=== PATIENT | male | born 1960 | race African-American/Black ===

== ENCOUNTER 2017-03-14 00:37 | Day surgery (SDC) | payer BC ==
[2017-03-14 01:27] VITALS: BMI 20.6
[2017-03-14 03:37] LABS: BASOPHIL 0.6 % (0-2.0); EOSINOPHIL 0.1 % (0-4.5); MCH 28.9 pg (25.7-33.7); MCHC 32.9 g/dl (32.0-35.9); MEAN CELL VOLUME 87.8 fl (80-96); MEAN PLT VOLUME 9.1 fl (7.5-11.1); NEUTROPHILS 83.9 % (42.8-82.8); PLATELET COUNT 163 K/MM3 (134-434); RDW 14.2 % (11.9-15.9); WHITE BLOOD COUNT 6.6 K/mm3 (4.0-10.0)
[2017-03-14 03:56] LABS: ALBUMIN 3.9 g/dl (3.4-5.0); ALK PHOS 83 U/L (45-117); ANION GAP 7 (8-16); BILIRUBIN,DIRECT 0.3 mg/dL (0.0-0.2); BILIRUBIN,TOTAL 1.3 mg/dL (0.2-1.0); CALCIUM 8.6 mg/dL (8.5-10.1); CO2 29 mmol/L (21-32); GLUCOSE,RANDOM 113 mg/dL (74-106); SGOT/AST 36 U/L (15-37); SGPT/ALT 40 U/L (12-78); TOT PROT 7.2 g/dl (6.4-8.2)
--- NOTE | 2017-03-14 05:00 | PDOC ---
History of Present Illness - General Chief Complaint: Pain, Acute Stated Complaint: STOMACH PAIN Time Seen by Provider: 03/14/17 02:42 History Source: Patient Exam Limitations: No Limitations - History of Present Illness Initial Comments: 03/14/17 05:00 57M with no pmh presents with 8/10 non-radiating periombilical pain with 3 episodes of non-bilious vomiting yesterday morning. No constipation, no diarrhea. Aleves relieves the pain a little but then comes back No one else sick at home. Not effected by food intake. Past History - Past Medical History Allergies/Adverse Reactions: Allergies Allergy/AdvReac Type Severity Reaction Status Date / Time No Known Allergies Allergy Verified 03/14/17 01:23 COPD: No - Suicide/Smoking/Psychosocial Hx Smoking History: Never smoked Review of Systems - Review of Systems Constitutional: No: Symptoms Reported HEENTM: No: Symptoms Reported Respiratory: No: Symptoms reported Cardiac (ROS): No: Symptoms Reported ABD/GI: Yes: See HPI : No: Symptoms Reported Musculoskeletal: No: Symptoms Reported Integumentary: No: Symptoms Reported Neurological: No: Symptoms reported *Physical Exam - Vital Signs Last Vital Signs Temp Pulse Resp BP Pulse Ox 98.3 F 68 18 137/68 98 03/14/17 01:25 03/14/17 01:25 03/14/17 01:25 03/14/17 01:25 03/14/17 01:25 - Physical Exam General Appearance: Yes: Nourished, Appropriately Dressed. No: Apparent Distress HEENT: positive: EOMI, ROBBIE, Normal ENT Inspection Neck: negative: Tender Respiratory/Chest: positive: Lungs Clear, Normal Breath Sounds. negative: Chest Tender, Respiratory Distress Cardiovascular: positive: Regular Rhythm, Regular Rate, S1, S2 Gastrointestinal/Abdominal: positive: Normal Bowel Sounds, Tender (periumbilical ), Pulsatile Mass, Distended. negative: Guarding, Rebound Neurologic: positive: Fully Oriented, Alert, Normal Mood/Affect ED Treatment Course - LABORATORY CBC & Chemistry Diagram: 03/14/17 03:27 03/14/17 03:27 - ADDITIONAL ORDERS Additional order review: Laboratory Results 03/14/17 03/14/17 03:27 03:27 Sodium 138 Potassium 4.0 Chloride 102 Carbon Dioxide 29 Anion Gap 7 L BUN 13 Creatinine 1.0 Creat Clearance w eGFR > 60 Random Glucose 113 H Calcium 8.6 Total Bilirubin 1.3 H Direct Bilirubin 0.3 H AST 36 ALT 40 Alkaline Phosphatase 83 Troponin I < 0.02 Total Protein 7.2 Albumin 3.9 Lipase 84 03/14/17 03:27 RBC 4.62 MCV 87.8 MCHC 32.9 RDW 14.2 MPV 9.1 Neutrophils % 83.9 H Lymphocytes % 9.0 Monocytes % 6.4 Eosinophils % 0.1 Basophils % 0.6 Medical Decision Making - Medical Decision Making 03/14/17 07:34 57M with no pmh presents with periumbilical pain and vomiting episods. 03/14/17 07:35 bedside u/s negative for AAA. CT Abd with PO & IV Contrast Pending. Labs WNL Patient signed out to Dr. Dye *DC/Admit/Observation/Transfer Diagnosis at time of Disposition: Periumbilical abdominal pain - Referrals Referrals: FriendYung [Primary Care Provider] - - Patient Instructions - Post Discharge Activity
[2017-03-14 06:11] LABS: URINE APPEARANCE CLEAR; URINE BILIRUBIN NEGATIVE (NEGATIVE); URINE BLOOD NEGATIVE (NEGATIVE); URINE COLOR YELLOW; URINE GLUCOSE (UA) NEGATIVE (NEGATIVE); URINE KETONE 1+ (NEGATIVE); URINE NITRITE NEGATIVE (NEGATIVE); URINE PROTEIN NEGATIVE (NEGATIVE); URINE UROBILINOGEN NEGATIVE mg/dL (0.2-1.0)
--- NOTE | 2017-03-14 08:11 | PDOC ---
*Physical Exam - Vital Signs Assumed care from Dr. Vieira. 57 YOM p/w periumbilical pain and vomiting x2 sxs onset 24 hours ago as of this morning.No obvious AAA on bedside US here in the ED. Awaiting CT Ab/Pelv IV/PO contrast final report. Last Vital Signs Temp Pulse Resp BP Pulse Ox 98.3 F 68 18 137/68 98 03/14/17 01:25 03/14/17 01:25 03/14/17 01:25 03/14/17 01:25 03/14/17 01:25 ED Treatment Course - LABORATORY CBC & Chemistry Diagram: 03/14/17 03:27 03/14/17 03:27 - ADDITIONAL ORDERS Additional order review: Laboratory Results 03/14/17 03/14/17 03/14/17 06:00 06:00 03:27 Sodium Potassium Chloride Carbon Dioxide Anion Gap BUN Creatinine Creat Clearance w eGFR Random Glucose Lactic Acid 0.6 Calcium Total Bilirubin Direct Bilirubin AST ALT Alkaline Phosphatase Troponin I < 0.02 Total Protein Albumin Lipase Urine Color Yellow Urine Appearance Clear Urine pH 6.0 Ur Specific [place] 1.017 Urine Protein Negative Urine Glucose (UA) Negative Urine Ketones 1+ H Urine Blood Negative Urine Nitrite Negative Urine Bilirubin Negative Urine Urobilinogen Negative 03/14/17 03:27 Sodium 138 Potassium 4.0 Chloride 102 Carbon Dioxide 29 Anion Gap 7 L BUN 13 Creatinine 1.0 Creat Clearance w eGFR > 60 Random Glucose 113 H Lactic Acid Calcium 8.6 Total Bilirubin 1.3 H Direct Bilirubin 0.3 H AST 36 ALT 40 Alkaline Phosphatase 83 Troponin I Total Protein 7.2 Albumin 3.9 Lipase 84 Urine Color Urine Appearance Urine pH Ur Specific [place] Urine Protein Urine Glucose (UA) Urine Ketones Urine Blood Urine Nitrite Urine Bilirubin Urine Urobilinogen 03/14/17 03:27 RBC 4.62 MCV 87.8 MCHC 32.9 RDW 14.2 MPV 9.1 Neutrophils % 83.9 H Lymphocytes % 9.0 Monocytes % 6.4 Eosinophils % 0.1 Basophils % 0.6 Medical Decision Making - Medical Decision Making 03/14/17 07:[address] Reeder who is concerned for appendicitis. 03/14/17 08:[address] Carpenter who will see when the patient can have appendectomy. Patient will be made NPO, antibiotics started, pre-op work to be done. 03/14/17 08:12 Spoke with Elvis Marinelli with Admitting; [facility]. CXR portable, T&S, coags, EKG, Cipro-Flagyl, NPO, IVF ordered. *DC/Admit/Observation/Transfer Diagnosis at time of Disposition: Appendicitis Qualifiers: Appendicitis type: acute appendicitis Acute appendicitis type: unspecified acute appendicitis type Qualified Code(s): K35.80 - Unspecified acute appendicitis - Discharge Dispostion Condition at time of disposition: Guarded Admit: Yes - Referrals Referrals: FriendYung [Primary Care Provider] - - Patient Instructions - Post Discharge Activity
[2017-03-14] MEDS ORDERED: CIPROFLOXACIN 400 MG/D5W 400 MG/200 ML IVPB IVPB ONE (08:15)
[2017-03-14] MEDS ORDERED: METRONIDAZOLE 500 MG PREMIXED 500 MG/100 ML MG IVPB ONE ×2 (08:15→09:43)
[2017-03-14] MEDS ORDERED: SODIUM CHLORIDE 0.9% 1000 ML INFUS.BAG IV ONE (08:20)
[2017-03-14 10:09] LABS: INR 1.12 (0.82-1.09); PROTHROMBIN TIME (PATIENT) 12.7 SEC (9.98-11.88)
[2017-03-14 10:12] LABS: ACTIVATED PTT 27.5 SECONDS (26.9-34.4)
[2017-03-14] MEDS ORDERED: morphine SULFATE 4 MG/ML VIAL IVPUSH PRN (10:27)
--- NOTE | 2017-03-14 10:27 | HP ---
CHIEF COMPLAINT:Abdominal pain with vomiting PCP:Dr. Barragan Friend HISTORY OF PRESENT ILLNESS: 57M with no PMH presents to the ED with a one day history of anbdominal pain. Patient states her was working yesterday an around 10am he had a break and ate some food and felt like he had gas pain. he then developed periumbilical abdominal pain nausea then eventual vomiting. Patient had a few episodes of NB/ NB vomiting. He denies fevers chills chest pain shortness of breath diarrhea or conniption. Patient states he has good follow up with his PMD and sees him regularly. He denies a PMH and denies being on meds. At the time of exam he denied pain and stated his symptoms have been relieved. He did not receive pain medications. ER course was notable for: (1)CTAP (2)IVF (3)ABX Labs Recent Travel:Denies PAST MEDICAL HISTORY:Denies PAST SURGICAL HISTORY: had 2 superficial masses removed from his back. Social History: Smoking:Denies Alcohol:Denies Drugs: Denies Allergies No Known Allergies Allergy (Verified 03/14/17 01:23) HOME MEDICATIONS: REVIEW OF SYSTEMS CONSTITUTIONAL: Absent: fever, chills, diaphoresis, generalized weakness, malaise, loss of appetite, weight change HEENT: Absent: rhinorrhea, nasal congestion, throat pain, throat swelling, difficulty swallowing, mouth swelling, ear pain, eye pain, visual changes CARDIOVASCULAR: Absent: chest pain, syncope, palpitations, irregular heart rate, lightheadedness , peripheral edema RESPIRATORY: Absent: cough, shortness of breath, dyspnea with exertion, orthopnea, wheezing, stridor, hemoptysis GASTROINTESTINAL: Absent: , abdominal distension, diarrhea, constipation, melena, hematochezia Present: abdominal pain , nausea, vomiting GENITOURINARY: Absent: dysuria, frequency, urgency, hesitancy, hematuria, flank pain, genital pain MUSCULOSKELETAL: Absent: myalgia, arthralgia, joint swelling, back pain, neck pain SKIN: Absent: rash, itching, pallor HEMATOLOGIC/IMMUNOLOGIC: Absent: easy bleeding, easy bruising, lymphadenopathy, frequent infections ENDOCRINE: Absent: unexplained weight gain, unexplained weight loss, heat intolerance, cold intolerance NEUROLOGIC: Absent: headache, focal weakness or paresthesias, dizziness, unsteady gait, seizure, mental status changes, bladder or bowel incontinence PSYCHIATRIC: Absent: anxiety, depression, suicidal or homicidal ideation, hallucinations. PHYSICAL EXAMINATION Vital Signs - 24 hr 03/14/17 01:25 Temperature 98.3 F Pulse Rate 68 Respiratory 18 Rate Blood Pressure 137/68 O2 Sat by Pulse 98 Oximetry (%) GENERAL: Awake, alert, and fully oriented, in no acute distress. HEAD: Normal with no signs of trauma. EYES: Pupils equal, round and reactive to light, extraocular movements intact, sclera anicteric, conjunctiva clear. EARS, NOSE, THROAT:Dry mucous membranes. NECK: Normal range of motion, supple without JVD LUNGS: Breath sounds equal, clear to auscultation bilaterally. No wheezes, and no crackles. No accessory muscle use. HEART: Regular rate and rhythm, normal S1 and S2 without murmur, rub or gallop. ABDOMEN: Soft, nontender, not distended, hyperactive bowel sounds, no guarding, no rebound MUSCULOSKELETAL: Normal range of motion at all joints. No bony deformities or tenderness. No CVA tenderness. UPPER EXTREMITIES: warm, well-perfused. No cyanosis. No clubbing. No peripheral edema. LOWER EXTREMITIES: warm, well-perfused. No calf tenderness. No peripheral edema. Laboratory Results - last 24 hr 03/14/17 03/14/17 03/14/17 03:27 03:27 03:27 WBC 6.6 RBC 4.62 Hgb 13.3 Hct 40.5 MCV 87.8 MCH 28.9 MCHC 32.9 RDW 14.2 Plt Count 163 MPV 9.1 Neutrophils % 83.9 H Lymphocytes % 9.0 Monocytes % 6.4 Eosinophils % 0.1 Basophils % 0.6 PT with INR INR PTT (Actin FS) Sodium 138 Potassium 4.0 Chloride 102 Carbon Dioxide 29 Anion Gap 7 L BUN 13 Creatinine 1.0 Creat Clearance w eGFR > 60 Random Glucose 113 H Lactic Acid Calcium 8.6 Total Bilirubin 1.3 H Direct Bilirubin 0.3 H AST 36 ALT 40 Alkaline Phosphatase 83 Troponin I < 0.02 Total Protein 7.2 Albumin 3.9 Lipase 84 Urine Color Urine Appearance Urine pH Ur Specific [place] Urine Protein Urine Glucose (UA) Urine Ketones Urine Blood Urine Nitrite Urine Bilirubin Urine Urobilinogen Blood Type Antibody Screen 03/14/17 03/14/17 03/14/17 06:00 06:00 09:00 WBC RBC Hgb Hct MCV MCH MCHC RDW Plt Count MPV Neutrophils % Lymphocytes % Monocytes % Eosinophils % Basophils % PT with INR 12.70 H INR 1.12 PTT (Actin FS) 27.5 Sodium Potassium Chloride Carbon Dioxide Anion Gap BUN Creatinine Creat Clearance w eGFR Random Glucose Lactic Acid 0.6 Calcium Total Bilirubin Direct Bilirubin AST ALT Alkaline Phosphatase Troponin I Total Protein Albumin Lipase Urine Color Yellow Urine Appearance Clear Urine pH 6.0 Ur Specific [place] 1.017 Urine Protein Negative Urine Glucose (UA) Negative Urine Ketones 1+ H Urine Blood Negative Urine Nitrite Negative Urine Bilirubin Negative Urine Urobilinogen Negative Blood Type Antibody Screen 03/14/17 09:00 WBC RBC Hgb Hct MCV MCH MCHC RDW Plt Count MPV Neutrophils % Lymphocytes % Monocytes % Eosinophils % Basophils % PT with INR INR PTT (Actin FS) Sodium Potassium Chloride Carbon Dioxide Anion Gap BUN Creatinine Creat Clearance w eGFR Random Glucose Lactic Acid Calcium Total Bilirubin Direct Bilirubin AST ALT Alkaline Phosphatase Troponin I Total Protein Albumin Lipase Urine Color Urine Appearance Urine pH Ur Specific [place] Urine Protein Urine Glucose (UA) Urine Ketones Urine Blood Urine Nitrite Urine Bilirubin Urine Urobilinogen Blood Type A POSITIVE Antibody Screen Negative CTAP: consistent with acute appendicitis ASSESSMENT/PLAN: 57M with no PMH presents to the ED with abdominal pain, nausea, and vomiting found to have acute appendicitis Acute appendicitis: patient currently asymptomatic CTAP consistent with acute appendicitis Give antibiotics given cipro/flagyl in ED. Will give ceftriaxone due to high rate of resistance in this community continue with flagyl NPO IVF Type and screen Coags EKG surgery consult to take patient to OR FEN: NS @ 125ml/hr no electrolyte issues NPO PPx: HSQ/SCDs no GI PPx indicated no PT consult needed at this time Case discussed with Attending Dr. Villanueva Visit type - Emergency Visit Emergency Visit: Yes Care time: The patient presented to the Emergency Department on the above date and was hospitalized for further evaluation of their emergent condition. - New Patient This patient is new to me today: Yes Date on this admission: 03/14/17 - Critical Care Critical Care patient: No
[2017-03-14] MEDS ORDERED: CEFTRIAXONE 1 G/50 ML PREMIX 50 ML IVPB SCH (10:30)
[2017-03-14] MEDS ORDERED: DEXAMETHASONE SOD PHOSPHATE 4 MG/1 ML VIAL ONE (10:43)
[2017-03-14] MEDS ORDERED: MIDAZOLAM HCL 2 MG/2 ML SINGLE DOSE VIAL ONE (10:44)
[2017-03-14] MEDS ORDERED: CEFTRIAXONE 1 GM/50 ML BAG ONE (10:50)
--- NOTE | 2017-03-14 11:06 | EKG ---
Test Reason : Blood Pressure : / mmHG Vent. Rate : 070 BPM Atrial Rate : 070 BPM P-R Int : 164 ms QRS Dur : 092 ms QT Int : 376 ms P-R-T Axes : 269 086 046 degrees QTc Int : 406 ms UNUSUAL P AXIS, POSSIBLE ECTOPIC ATRIAL RHYTHM ABNORMAL ECG NO PREVIOUS ECGS AVAILABLE Confirmed by HERBERT SWEET, CYNTHIA ([id number]) on 03/14/2017 11:06:23 AM Referred By: Confirmed By:CYNTHIA GODINEZ MD
[2017-03-14] MEDS ORDERED: BUPIVACAINE HCL/PF 0.5% (5MG/ML) 10 ML VIAL ONE (11:08)
--- NOTE | 2017-03-14 11:37 | PN ---
Teaching Attending Note Name of Resident: Elvis Marinelli ATTENDING PHYSICIAN STATEMENT I saw and evaluated the patient. I reviewed the resident's note and discussed the case with the resident. I agree with the resident's findings and plan as documented. SUBJECTIVE: This is a 57 year old man with no significant history who presents to the ED complaining of abdominal pain. He developed periumbilical pain with nausea and vomiting yesterday after eating breakfast. The pain became severe last night. He denies fever, chills. OBJECTIVE: Vital Signs Period Temp Pulse Resp BP Sys/Mancia Pulse Ox Last 24 Hr 98.3 F 68 18 137/68 98 HEART: S1S2, RRR LUNGS: Clear ABDOMEN: Soft, non-tender, non-distended, normal BS EXTREMITIES: No edema Laboratory Tests 03/14/17 03/14/17 03/14/17 03:27 03:27 03:27 WBC 6.6 RBC 4.62 Hgb 13.3 Hct 40.5 MCV 87.8 MCH 28.9 MCHC 32.9 RDW 14.2 Plt Count 163 MPV 9.1 Neutrophils % 83.9 H Lymphocytes % 9.0 Monocytes % 6.4 Eosinophils % 0.1 Basophils % 0.6 PT with INR INR PTT (Actin FS) Sodium 138 Potassium 4.0 Chloride 102 Carbon Dioxide 29 Anion Gap 7 L BUN 13 Creatinine 1.0 Creat Clearance w eGFR > 60 Random Glucose 113 H Lactic Acid Calcium 8.6 Total Bilirubin 1.3 H Direct Bilirubin 0.3 H AST 36 ALT 40 Alkaline Phosphatase 83 Troponin I < 0.02 Total Protein 7.2 Albumin 3.9 Lipase 84 Urine Color Urine Appearance Urine pH Ur Specific [place] Urine Protein Urine Glucose (UA) Urine Ketones Urine Blood Urine Nitrite Urine Bilirubin Urine Urobilinogen Blood Type Antibody Screen 03/14/17 03/14/17 03/14/17 06:00 06:00 09:00 WBC RBC Hgb Hct MCV MCH MCHC RDW Plt Count MPV Neutrophils % Lymphocytes % Monocytes % Eosinophils % Basophils % PT with INR 12.70 H INR 1.12 PTT (Actin FS) 27.5 Sodium Potassium Chloride Carbon Dioxide Anion Gap BUN Creatinine Creat Clearance w eGFR Random Glucose Lactic Acid 0.6 Calcium Total Bilirubin Direct Bilirubin AST ALT Alkaline Phosphatase Troponin I Total Protein Albumin Lipase Urine Color Yellow Urine Appearance Clear Urine pH 6.0 Ur Specific [place] 1.017 Urine Protein Negative Urine Glucose (UA) Negative Urine Ketones 1+ H Urine Blood Negative Urine Nitrite Negative Urine Bilirubin Negative Urine Urobilinogen Negative Blood Type Antibody Screen 03/14/17 09:00 WBC RBC Hgb Hct MCV MCH MCHC RDW Plt Count MPV Neutrophils % Lymphocytes % Monocytes % Eosinophils % Basophils % PT with INR INR PTT (Actin FS) Sodium Potassium Chloride Carbon Dioxide Anion Gap BUN Creatinine Creat Clearance w eGFR Random Glucose Lactic Acid Calcium Total Bilirubin Direct Bilirubin AST ALT Alkaline Phosphatase Troponin I Total Protein Albumin Lipase Urine Color Urine Appearance Urine pH Ur Specific [place] Urine Protein Urine Glucose (UA) Urine Ketones Urine Blood Urine Nitrite Urine Bilirubin Urine Urobilinogen Blood Type A POSITIVE Antibody Screen Negative ASSESSMENT AND PLAN: This is a healthy 57 year old man who presented to the ED this morning with abdominal pain, nausea and vomiting since yesterday morning. CT is consistent with acute appendicitis. 1. Acute appendicitis - NPO - IV fluid - Morphine as needed for pain - Zofran as needed for nausea - Rocephin, Flagyl - Surgery consult 2. BPH on CT
[2017-03-14] MEDS ORDERED: CIPROFLOXACIN 400 MG PREMIX BAG IVPB ONE (11:45)
--- NOTE | 2017-03-14 11:52 | CONSULT ---
- Consultation REQUESTING PROVIDER: ER MD CONSULT REQUEST: We have been asked to surgically evaluate this patient for ( specify). PCP:Rich SWEET HISTORY OF PRESENT ILLNESS:57 y/o Creole speaking male presented with periumbilical to RLQ abdomonal pain; w/u reveals acute appendicitis.No other GI/ c/o. PMHx: none PSHx: none Allergies Allergy/AdvReac Type Severity Reaction Status Date / Time No Known Allergies Allergy Verified 03/14/17 01:23 . PHYSICAL EXAM: GENERAL: Awake, alert, and fully oriented, in no acute distress. HEAD: Normal with no signs of trauma. EYES: PERRL, sclera anicteric, conjunctiva clear. NECK: Normal ROM, supple without lymphadenopathy, JVD, or masses. ABDOMEN: Soft, tender RLQ w/guarding; positive psoas; obturatoe and Rovsings signs, not distended, normoactive bowel sounds, no guarding, no rebound, no masses. No organomegaly. ? umbilical hernia MUSCULOSKELETAL: Normal ROM at all joints. No bony deformities or tenderness. No CVA tenderness. UPPER EXTREMITIES: 2+ pulses, warm, well-perfused. No cyanosis. Cap refill <2 seconds. No peripheral edema. LOWER EXTREMITIES: 2+ pulses, warm, well-perfused. No calf tenderness. No peripheral edema. NEUROLOGICAL: Normal speech, gait not observed. PSYCH: Cooperative. Good eye contact. Appropriate mood and affect. SKIN: Warm, dry, normal turgor, no rashes or lesions noted. Vital Signs Temperature 98.3 F 03/14/17 01:25 Pulse Rate 68 03/14/17 01:25 Respiratory Rate 18 03/14/17 01:25 Blood Pressure 137/68 03/14/17 01:25 O2 Sat by Pulse Oximetry (%) 98 03/14/17 01:25 Lab Results WBC 6.6 K/mm3 (4.0-10.0) 03/14/17 03:27 RBC 4.62 M/mm3 (4.00-5.60) 03/14/17 03:27 Hgb 13.3 GM/dL (11.7-16.9) 03/14/17 03:27 Hct 40.5 % (35.4-49) 03/14/17 03:27 MCV 87.8 fl (80-96) 03/14/17 03:27 MCHC 32.9 g/dl (32.0-35.9) 03/14/17 03:27 RDW 14.2 % (11.9-15.9) 03/14/17 03:27 Plt Count 163 K/MM3 (134-434) 03/14/17 03:27 Sodium 138 mmol/L (136-145) 03/14/17 03:27 Potassium 4.0 mmol/L (3.5-5.1) 03/14/17 03:27 Chloride 102 mmol/L (98-107) 03/14/17 03:27 Carbon Dioxide 29 mmol/L (21-32) 03/14/17 03:27 Anion Gap 7 (8-16) L 03/14/17 03:27 BUN 13 mg/dL (7-18) 03/14/17 03:27 Creatinine 1.0 mg/dL (0.7-1.3) 03/14/17 03:27 Random Glucose 113 mg/dL (74-106) H 03/14/17 03:27 Calcium 8.6 mg/dL (8.5-10.1) 03/14/17 03:27 Blood Type A POSITIVE 03/14/17 09:00 Antibody Screen Negative 03/14/17 09:00 INR 1.12 (0.82-1.09) 03/14/17 09:00 CT-acute appendicitis IMP:acute appendicitis PLAN; lap appendectomy possible open; r/b/t/a's d/w the patient via interpretor phone service. Daniel Carpenter MD FACS Visit type - Case Type Case Type: ED Admission - Emergency Emergency Visit: Yes Care time: The patient presented to the Emergency Department on the above date and was hospitalized for further evaluation of their emergent condition. - New patient This patient is new to me today: Yes Date on this admission: 03/14/17 - Critical Care Critical Care patient: No
[2017-03-14] MEDS ORDERED: NEOSTIGMINE METHYLSULFATE 0.5 MG/ML - 10 ML MDV ONE (12:37)
[2017-03-14] MEDS ORDERED: GLYCOPYRROLATE 0.2 MG/1 ML VIAL ONE ×2 (12:37→12:38)
[2017-03-14] MEDS ORDERED: BUPIVACAINE HCL/PF 0.5% (5MG/ML) 10 ML VIAL IJ ONE (13:00)
[2017-03-14 13:56] LABS: URINE LEUK ESTERASE Negative (NEGATIVE)
--- NOTE | 2017-03-14 15:01 | OP ---
Operative Note - Note: Operative Date: 03/14/17 Pre-Operative Diagnosis: acute appemdicitis Operation: lap appendectomy Findings: acute appendicitis Surgeon: Daniel Carpenter Parachute Folder: Comfort Aleman Anesthesiologist/WAITER AND CASHIER: Davon Singh Anesthesia: General Specimens Removed: appendix Estimated Blood Loss (mls): 15 Operative Report Dictated: Yes
[2017-03-14] MEDS ORDERED: D5-1/2NS+20 MEQ KCL - 20 MEQ/1,000 ML INFUS.BAG IV SCH (15:15)
[2017-03-14] MEDS ORDERED: IBUPROFEN 800 MG/8 ML IJ IVPB PRN (15:23)
[2017-03-14] MEDS ORDERED: ONDANSETRON 4 MG/2 ML VIAL IVPUSH PRN (15:23)
[2017-03-14] MEDS: SODIUM CHLORIDE 1,000 ML IV SCH ×2 (16:00→16:48)
[2017-03-14] MEDS: HEPARIN NA (PORCINE) 5,000 UNITS/ML 1ML VIAL SQ SCH ×2 (16:48→21:09)
[2017-03-14] MEDS ORDERED: METRONIDAZOLE 500 MG PREMIXED 500 MG/100 ML MG IVPB SCH (18:00)
[2017-03-14] MEDS ORDERED: SODIUM CHLORIDE 1,000 ML IV SCH (21:48)
[2017-03-14] MEDS ORDERED: oxyCODONE HCL 5 MG TABLET PO PRN ×2 (22:33→22:35)
[2017-03-14] MEDS ORDERED: ACETAMINOPHEN 325 MG TABLET (FP) PO PRN ×2 (22:33→22:35)
[2017-03-15] MEDS: HEPARIN NA (PORCINE) 5,000 UNITS/ML 1ML VIAL SQ SCH ×2 (05:31→13:32)
[2017-03-15 08:03] LABS: BASOPHIL 0.2 % (0-2.0); MCH 28.2 pg (25.7-33.7); MCHC 31.8 g/dl (32.0-35.9); MEAN CELL VOLUME 88.9 fl (80-96); MEAN PLT VOLUME 9.6 fl (7.5-11.1); NEUTROPHILS 81.8 % (42.8-82.8); PLATELET COUNT 154 K/MM3 (134-434); RDW 14.5 % (11.9-15.9)
--- NOTE | 2017-03-15 08:16 | DS ---
Physical Exam: SUBJECTIVE: Patient seen and examined OBJECTIVE: Vital Signs Period Temp Pulse Resp BP Sys/Mancia Pulse Ox Last 24 Hr 98 F-98.9 F 60-75 13-18 112-135/55-89 98-100 PHYSICAL EXAM GENERAL: The patient is awake, alert, and fully oriented, in no acute distress. HEAD: Normal with no signs of trauma. EYES: PERRL, extraocular movements intact, sclera anicteric, conjunctiva clear. ENT: Ears normal, nares patent, oropharynx clear without exudates, moist mucous membranes. NECK: Trachea midline, full range of motion, supple. LUNGS: Breath sounds equal, clear to auscultation bilaterally, no wheezes, no crackles, no accessory muscle use. HEART: Regular rate and rhythm, S1, S2 without murmur, rub or gallop. ABDOMEN: Soft, nontender, nondistended, normoactive bowel sounds, no guarding, no rebound, no hepatosplenomegaly, no masses. EXTREMITIES: 2+ pulses, warm, well-perfused, no edema. NEUROLOGICAL: Cranial nerves II through XII grossly intact. Normal speech, gait not observed. PSYCH: Normal mood, normal affect. SKIN: Warm, dry, normal turgor, no rashes or lesions noted. LABS Laboratory Results - last 24 hr 03/14/17 03/14/17 03/14/17 06:00 09:00 09:00 PT with INR 12.70 H INR 1.12 PTT (Actin FS) 27.5 Ur Leukocyte Esterase Negative Blood Type A POSITIVE Antibody Screen Negative Active Medications Home Medications Medication Instructions Recorded Ibuprofen 400 mg PO Q8H #10 tablet 03/15/17 Oxycodone HCl/Acetaminophen 1 tab PO Q12H #4 tablet MDD 2 03/15/17 [Percocet 5-325 mg Tablet] tablets HOSPITAL COURSE: Date of Admission:03/14/17 Date of Discharge: 03/15/17 Home Medications Medication Instructions Recorded Ibuprofen 400 mg PO Q8H #10 tablet 03/15/17 Oxycodone HCl/Acetaminophen 1 tab PO Q12H #4 tablet MDD 2 03/15/17 [Percocet 5-325 mg Tablet] tablets Discharge Summary Reason For Visit: APPENDICITIS Current Active Problems Appendicitis (Acute) Condition: Improved - Instructions Diet, Activity, Other Instructions: You were treated for appendicitis. Your appendix was removed by Dr. Carpenter. Please resume eating a regular diet as able and resume physical activity as tolerated. Please schedule a follow-up appointment with your Primary Care Doctor (Dr. Barragan ) within 1 week of going home from the hospital. Please schedule a follow-up appointment with your Surgeon (Dr. Carpenter) within 1 week of leaving the hospital. Please return to the hospital immediately if you experience persistent or increased abdominal pain, fevers, chills, or for any other medical emergency. Referrals: Daniel Carpenter MD [Staff Physician] - 1 Week Yung Stringer [Primary Care Provider] - 1 Week Disposition: HOME - Home Medications Comprehensive Discharge Medication List: Ambulatory Orders NK [No Known Home Medication] 03/15/17
--- NOTE | 2017-03-15 08:42 | DS ---
Physical Exam: SUBJECTIVE: Patient seen and examined. no complaints. Mild pain. Tolerated clear liquid diet OBJECTIVE: Vital Signs Period Temp Pulse Resp BP Sys/Mancia Pulse Ox Last 24 Hr 98 F-98.9 F 60-75 13-18 112-135/55-89 98-100 PHYSICAL EXAM GENERAL: Awake, alert, and fully oriented, in no acute distress. HEAD: Normal with no signs of trauma. EYES: Pupils equal, round and reactive to light, extraocular movements intact, sclera anicteric, conjunctiva clear. EARS, NOSE, THROAT:Dry mucous membranes. NECK: Normal range of motion, supple without JVD LUNGS: Breath sounds equal, clear to auscultation bilaterally. No wheezes, and no crackles. No accessory muscle use. HEART: Regular rate and rhythm, normal S1 and S2 without murmur, rub or gallop. ABDOMEN: Soft, minimally appropriately tender, not distended, + bowel sounds, no guarding, no rebound MUSCULOSKELETAL: Normal range of motion at all joints. No bony deformities or tenderness. No CVA tenderness. UPPER EXTREMITIES: warm, well-perfused. No cyanosis. No clubbing. No peripheral edema. LOWER EXTREMITIES: warm, well-perfused. No calf tenderness. No peripheral edema. LABS Laboratory Results - last 24 hr 03/14/17 03/14/17 03/14/17 06:00 09:00 09:00 WBC RBC Hgb Hct MCV MCH MCHC RDW Plt Count MPV Neutrophils % Lymphocytes % Monocytes % Eosinophils % Basophils % PT with INR 12.70 H INR 1.12 PTT (Actin FS) 27.5 Ur Leukocyte Esterase Negative Blood Type A POSITIVE Antibody Screen Negative 03/15/17 06:00 WBC 8.0 RBC 4.53 Hgb 12.8 Hct 40.3 MCV 88.9 MCH 28.2 MCHC 31.8 L RDW 14.5 Plt Count 154 MPV 9.6 Neutrophils % 81.8 Lymphocytes % 10.2 Monocytes % 7.8 Eosinophils % 0.0 D Basophils % 0.2 PT with INR INR PTT (Actin FS) Ur Leukocyte Esterase Blood Type Antibody Screen HOSPITAL COURSE: Date of Admission:03/14/17 Date of Discharge: 03/15/17 57m no PMH admitted with abdominal pain and vomiting found to have acute appendicitis on CT scan. Patient was treated with IV Abx. He was seen by surgery and had his appendix removed yesterday on the same day of presentation. Patient tolerated the procedure well and he has been tolerating diet and ambulating. Stable for discharge. Advised to follow up with surgeon for post op check and pathology results and PMD within 1 week. Minutes to complete discharge: 35 Discharge Summary Reason For Visit: APPENDICITIS Current Active Problems Appendicitis (Acute) Condition: Improved - Instructions Diet, Activity, Other Instructions: You were treated for appendicitis. Your appendix was removed by Dr. Carpenter. Please resume eating a regular diet as able and resume physical activity as tolerated. Please schedule a follow-up appointment with your Primary Care Doctor (Dr. Barragan ) within 1 week of going home from the hospital. Please schedule a follow-up appointment with your Surgeon (Dr. Carpenter) within 1 week of leaving the hospital. Please return to the hospital immediately if you experience persistent or increased abdominal pain, fevers, chills, or for any other medical emergency. Referrals: Daniel Carpenter MD [Staff Physician] - 1 Week Yung Stringer [Primary Care Provider] - 1 Week Disposition: HOME - Home Medications Comprehensive Discharge Medication List: Ambulatory Orders Ibuprofen 400 mg PO Q8H #10 tablet 03/15/17 Oxycodone HCl/Acetaminophen [Percocet 5-325 mg Tablet] 1 tab PO Q12H #4 tablet MDD 2 tablets 03/15/17 This patient is new to me today: No Emergency Visit: Yes Care time: The patient presented to the Emergency Department on the above date and was hospitalized for further evaluation of their emergent condition. Critical Care patient: No - Discharge Referral Referred to [facility] Med P.C.: No
--- NOTE | 2017-03-15 10:44 | PN ---
Progress Note (short form) - Note Progress Note: Attending Surgeon POD #1 s/p lap appendectomy No c/o tolerated diet; voiding and passing flatus; no BM VSS AF abdomen-soft; non tender; poert site steri strips c/d/i; o/w negative. IMP: doing well PLAN: D/C to office f/u 7- 10 days; instructed on wound care and ADL. Daniel Carpenter MD FACS
--- NOTE | 2017-03-15 11:14 | OP ---
DATE OF OPERATION: 03/14/2017 PREOPERATIVE DIAGNOSIS: Acute appendicitis. POSTOPERATIVE DIAGNOSIS: Acute appendicitis. PROCEDURE: Laparoscopic appendectomy. SURGEON: Daniel Carpenter MD HOSPITAL ACCOUNT MANAGER: Comfort Aleman, medical student IV ANESTHESIA: General. OPERATIVE FINDINGS: Acute suppurative appendicitis. The rest of the findings were unremarkable. DESCRIPTION OF PROCEDURE: The patient was placed on the operating room in supine position, and after induction of general anesthesia, a time-out was taken and then the abdomen was prepped with ChloraPrep and draped in sterile fashion. Pneumoperitoneum was established using a Veress needle above the umbilicus until an intra-abdominal pressure of 15 mmHg was achieved. A 5-mm port was placed just above the umbilicus and laparoscopy carried out and the previously noted findings were observed. A suprapubic 12-mm port was placed, and a left lower quadrant 5-mm port was placed and then the patient was head down and turned to the left. The appendix was identified and the cecum partially immobilized from the lateral abdominal wall using the LigaSure device. The appendix was grabbed with a Hostetter clamp and then the mesoappendix serially divided using the LigaSure. Once the mesentery was completely divided, the base of the appendix was clearly identified at the confluence of the 3 tinea and then a 45-mm blue load Endo BERTHA was fired across the base of the appendix. After this, there was noted to be no bleeding from the appendiceal stump, and the appendix was placed in a specimen retrieval bag and brought out through the suprapubic port. Pneumoperitoneum was re-established. Irrigation carried out with normal saline until the effluent was clear. Hemostasis verified again and then all ports removed under laparoscopic vision without evidence of bleeding from the port sites. The pneumoperitoneum was evacuated, and then the facial defect at the suprapubic port was closed with a single 0 Vicryl [id number] suture. All port sites were infiltrated with 0.0.5% Marcaine and skin edges reapproximated with 4 -0 Monocryl in a subcuticular continuous fashion. Steri-Strips and Band-Aid dressings were placed, and the patient procedure was terminated at this point and the patient aroused from general anesthesia and transferred to the post anesthesia care unit in stable condition awake and alert. ESTIMATED BLOOD LOSS: 15 mL. REPLACEMENTS: Crystalloid. DRAINS: None. SPECIMEN: Appendix to pathology. I, Daniel Carpenter, was physically present in the operating room from the time the patient was placed on the operating room table until he was transferred to the post anesthesia care unit in my company. MD FLORY Ford/[id number] MTDD
[2017-03-15 12:45] VITALS: BP 114/65; PULSE 66; TEMP 98.4
--- NOTE | 2017-03-15 15:30 | PN ---
Teaching Attending Note Name of Resident: Elvis Marinelli ATTENDING PHYSICIAN STATEMENT I saw and evaluated the patient. I reviewed the resident's note and discussed the case with the resident. I agree with the resident's findings and plan as documented. SUBJECTIVE: no pain, no fever or chills OBJECTIVE: NAD CV: RRR Lungs : CTAB ext : no edema Abd : soft , NT, ND , NL BS ., tape on surgical scars ASSESSMENT AND PLAN: 57 y/o gentleman with no significant PMH who presented with abd pain and was found to have acute appendicitis . No s/p appendectomy. pain is controlled . appears well . tolerated diet dc homewith 4 tab of percocet and ibuprofen . f/u with Chandrakant Contreras in 1 week
--- NOTE | 2017-03-15 19:31 | PATH ---
Surgical Pathology Report Patient Name: JESSENIA CREWS [facility]. Rec. #: [id number] /Age/Gender: 1960 (Age: 57) / M Account: [id number] Location: AMBULATORY SURG Taken: 03/14/2017 Received: 03/14/2017 Reported: 03/15/2017 Physicians: Daniel Carpenter MD Specimen(s) Received APPENDIX Clinical History Abdominal pain Final Diagnosis APPENDIX, LAPAROSCOPIC APPENDECTOMY: ACUTE APPENDICITIS AND PERIAPPENDICITIS. Electronically Signed Alisson Diaz M.D. Gross Description Received in formalin, labeled "appendix," is a 5.5 cm. in length vermiform appendix with a stapled margin of resection and moderate attached fat. The serosa is reza-pink with attached exudate. Sectioning reveals a dilated lumen containing red blood. The wall of the appendix averages 0.2 cm. in thickness. Rolling Chair Pusher sections are submitted in one cassette. /03/14/2017 saudi03/14/2017
== END 2017-03-15 15:00 | disposition home or self-care (01) ==
LOC: JER 00:37 → SUATTDRO 08:20 → JASUSAT 08:20 → J8W 16:23 → JASUSAT 03-15 15:00
PROVIDERS: ATTEND Internal Medicine
PROC: 0DTJ4ZZ Resection of Appendix, Percutaneous Endoscopic Approach (ICD-10-PCS; principal; 2017-03-14 12:30)
DX: K35.89 Other acute appendicitis (principal)
CPT/HCPCS: 36415; 71010-TC; 74177-TC; 80053; 81003; 82248; 83605; 83690; 84484; 85025; 85610; 85730; 86850; 86900; 86901; 88304-TC; 93005; 93010; 99285-25; J1644